=== PATIENT | male | born 1965 | race Caucasian/White ===

== ENCOUNTER 2017-01-03 12:01 | Emergency (ER) | payer OTHER ==
[~2017-01-03] VITALS: Ht 182.9 cm; Wt 161.3 kg
[~2017-01-03 12:01] MED LIST: IBUP-1428 PO; OMEG10007 PO; SERT25TA PO; ZCR10 PO
[2017-01-03 12:02] VITALS: TEMP 37.3; Ht 182.9 cm; Wt 161.3 kg
[2017-01-03] MEDS ORDERED: SERT50TA PO (12:15)
--- NOTE | 2017-01-03 13:50 | EMERGENCY ROOM VISIT NOTE ---
ED Visit Note First contact with patient: 13:02 CHIEF COMPLAINT: Low back pain HISTORY OF PRESENT ILLNESS: This 51-year-old male patient presents to the emergency department ambulatory complaining of pain in the low back which began today at work when he tripped over an ambulance litter and caught himself before he fell to the ground but he twisted his back. He had an injury to his back last year for which he was off work several months. He complains of pain in the low back. He rates his discomfort 6/10. The pain was gradual in onset, is now constant and worse with movement. The patient has taken nothing for relief of the pain. The patient denies any bowel or bladder difficulties. There has been no leg numbness or weakness, and no change in sensation. No nausea or vomiting or abdominal pain. No chest pain or shortness of breath. The patient has had prior back injuries. REVIEW OF SYSTEMS: No dysuria or increased urinary frequency. A 6 system review of systems was completed and pertinent positives and negatives are in the HPI. ALLERGIES: No known drug allergies MEDICATIONS: Zoloft, simvastatin PMH: Hyperlipidemia SOCIAL HISTORY: The patient is employed PHYSICAL EXAM: VITALS: Vitals are noted on the nurse's note and reviewed by myself. No abnormalities noted. GENERAL: As a 51-year-old male, in no acute distress, nondiaphoretic, well- developed well-nourished. SKIN: The skin was without rashes, erythema, edema, or bruising. Capillary refill less than 2 seconds. NECK: Supple without nuchal rigidity. No cervical spine tenderness. No paraspinous muscle tenderness. HEART: Regular rate and rhythm without murmurs gallops or rubs. LUNGS: Clear to auscultation bilaterally without wheezes, rales or rhonchi. ABDOMEN: Positive bowel sounds x 4. Normal tympanic percussion. Soft, nontender, without masses or organomegaly. Taylor sign negative. MUSCULOSKELETAL: No muscle atrophy, erythema, or edema noted of the back. There is mild tenderness over the lumbar spinous processes. There is minimal tenderness over the paraspinous muscles bilaterally. There is no tenderness over the thoracic spine sore paraspinous muscles. There are no muscle spasms present. The patient is slow to move around with maximum tenderness with twisting and extension. Negative straight leg raise test. NEURO: Patient was alert and oriented to person place and time. Normal sensation to light and sharp touch. Deep tendon reflexes 2+ in the lower extremities. Dorsalis pedis pulse 2+ bilaterally. Strength is 5/5 in the lower extremities bilaterally. EMERGENCY DEPARTMENT COURSE: The patient was seen and examined. Previous visits were reviewed. The patient twisted his back at work. He seems to have lumbar strain. He does not have any neurologic deficit on exam or by history. I do not suspect cauda equina, cord compression or infectious process. An x- ray was obtained and did not reveal any obvious abnormality. The patient already takes anti-inflammatories for his knee. He will also be given a prescription for Skelaxin. He should contact occupational medicine for a follow -up appointment for further evaluation, management and return to duty. He should return with any worsening symptoms. DIFFERENTIAL DIAGNOSIS: Lumbar strain, degenerative disc disease, spondylolisthesis, herniated disc, spinal stenosis, osteoporosis, fracture, cauda equina syndrome, neoplasm, infection, inflammatory arthritis, among others. DIAGNOSIS: Lumbar strain LUMBAR SPINE 5 VIEWS CLINICAL HISTORY: Low back pain. Recent fall. FINDINGS: 5 views of the lumbar spine are compared to study dated 03/16/2016. The skeletal structures are well mineralized. There is no radiographic evidence of fracture or malalignment. Vertebral body height and alignment are maintained. The transverse and spinous processes are intact. There is no evidence of spondylolysis. Small anterior osteophytes are seen throughout. Mild disc space narrowing is seen at L5-S1. The remaining intervertebral disc spaces are well-maintained. The visualized bony pelvis appears intact. There is a nonobstructed abdominal bowel gas pattern. IMPRESSION: No acute bony abnormality is seen involving the lumbosacral spine. Current/Historical Medications Scheduled Metaxalone (Skelaxin), 800 MG PO QID Sertraline (Zoloft), 50 MG PO HS Simvastatin (Simvastatin), 30 MG PO HS Allergies Coded Allergies: No Known Allergies (Unverified , 03/16/16) Vital Signs Date Time Temp Pulse Resp B/P (MAP) Pulse Ox O2 Delivery O2 Flow Rate FiO2 01/03/17 15:11 78 20 158/98 96 01/03/17 12:02 37.3 88 16 152/100 94 Room Air Departure Information Impression Primary Impression: Back pain Additional Impression: Work related injury Dispostion Home / Self-Care Condition GOOD Prescriptions Metaxalone (Skelaxin) 800 Mg Tab 800 MG PO QID for 5 Days, #20 TAB Prov: Kalee Echols PA-C 01/03/17 Referrals Emilie Leal D.O. (PCP) Jasmyn Rosales Forms HOME CARE DOCUMENTATION FORM, IMPORTANT VISIT INFORMATION, Work Instructions Additional Instructions: Off work until cleared by occupational medicine Patient Instructions Back Pain - [facility], ED Low Back Pain Injury, My [facility] Additional Instructions Continue the anti-inflammatories Try the Skelaxin every 6 hours as needed for muscle spasm. It may make you sleepy; do not drive while taking it Contact occupational medicine to schedule a follow-up appointment for further evaluation, management and released to full duty Return sooner with any worsening symptoms, numbness, tingling, weakness in the legs, loss of bowel or bladder control, fever or generalized worsening symptoms. Problem Qualifiers Primary Impression: Back pain Back pain location: low back pain Chronicity: acute Sciatica presence: without sciatica
--- NOTE | 2017-01-03 14:40 | DIAGNOSTIC IMAGING REPORT ---
LUMBAR SPINE 5 VIEWS CLINICAL HISTORY: Low back pain. Recent fall. FINDINGS: 5 views of the lumbar spine are compared to study dated 03/16/2016. The skeletal structures are well mineralized. There is no radiographic evidence of fracture or malalignment. Vertebral body height and alignment are maintained. The transverse and spinous processes are intact. There is no evidence of spondylolysis. Small anterior osteophytes are seen throughout. Mild disc space narrowing is seen at L5-S1. The remaining intervertebral disc spaces are well-maintained. The visualized bony pelvis appears intact. There is a nonobstructed abdominal bowel gas pattern. IMPRESSION: No acute bony abnormality is seen involving the lumbosacral spine. Electronically signed by: Que Ceballos M.D. 01/03/2017 2:39 PM Dictated Date/Time: 01/03/2017 2:38 PM
[2017-01-03] MEDS ORDERED: META1TAB22 PO (14:57)
[2017-01-03 15:11] VITALS: BP 158/98; PULSE 78; O2SAT 96
== END 2017-01-03 15:14 | disposition home or self-care (01) ==
LOC: C.EDB 12:02 → C.EDD 15:14
DX: S39.012A Strain of muscle, fascia and tendon of lower back, initial encounter (principal); W22.8XXA Striking against or struck by other objects, initial encounter; X50.0XXA Overexertion from strenuous movement or load, initial encounter; Y99.0 Civilian activity done for income or pay; Y92.89 Other specified places as the place of occurrence of the external cause; E78.5 Hyperlipidemia, unspecified; Z79.899 Other long term (current) drug therapy

== ENCOUNTER 2017-05-23 11:29 | Emergency (ER) | payer OTHER ==
[~2017-05-23] VITALS: Ht 182.9 cm; Wt 159.5 kg
[~2017-05-23 11:29] MED LIST changes: -IBUP-1428 PO; -OMEG10007 PO; -SERT25TA PO; +SERT50TA PO
[2017-05-23 11:43] VITALS: TEMP 36.8; Ht 182.9 cm; Wt 159.5 kg
[2017-05-23] MEDS ORDERED: OMEG10007 PO (12:00)
--- NOTE | 2017-05-23 12:48 | DIAGNOSTIC IMAGING REPORT ---
THORACIC SPINE 3 VIEWS ROUTINE CLINICAL HISTORY: Back pain status post trauma COMPARISON STUDY: No previous studies for comparison. FINDINGS: The paraspinal line is not significantly displaced. There are mild multilevel degenerative changes. No acute fractures or traumatic subluxations are visualized. IMPRESSION: Degenerative change. No acute fractures are visualized on conventional radiographic imaging Electronically signed by: Chaim Radford M.D. 05/23/2017 12:46 PM Dictated Date/Time: 05/23/2017 12:46 PM
--- NOTE | 2017-05-23 12:51 | DIAGNOSTIC IMAGING REPORT ---
L KNEE 3 VIEWS HISTORY: 51 years-old Male same; previous surgery, L acute left knee pain status post fall COMPARISON: None available TECHNIQUE: 3 views of the left knee FINDINGS: Mild medial and lateral with moderate patellofemoral compartment osteoarthritis. Mild spurring of the tibial tuberosity. No acute fracture or dislocation. Small moderate joint effusion. Mild soft tissue swelling, most pronounced medially. IMPRESSION: 1. Small joint effusion with mild medial soft tissue swelling. No fracture. 2. Tricompartmental osteoarthritis, most pronounced within the patellofemoral joint where there is moderate disease. The above report was generated using voice recognition software. It may contain grammatical, syntax or spelling errors. Electronically signed by: Matt Kessler M.D. 05/23/2017 12:49 PM Dictated Date/Time: 05/23/2017 12:48 PM
--- NOTE | 2017-05-23 12:53 | DIAGNOSTIC IMAGING REPORT ---
PELVIS 1 OR 2 VIEW ROUTINE CLINICAL HISTORY: same; L hip and SI joint pain trauma. Pain. COMPARISON: None. DISCUSSION: The bones and joint spaces appear intact. There is no evidence of fracture, dislocation or bony disease. There is no evidence for soft tissue swelling. IMPRESSION: Negative study. The above report was generated using voice recognition software. It may contain grammatical, syntax or spelling errors. Electronically signed by: Esau Ledesma M.D. 05/23/2017 12:51 PM Dictated Date/Time: 05/23/2017 12:49 PM
[2017-05-23 13:31] VITALS: BP 168/96; PULSE 82; O2SAT 96
--- NOTE | 2017-05-23 19:03 | EMERGENCY ROOM VISIT NOTE ---
ED Visit Note First contact with patient: 11:50 Chief Complaint: I fell at work approximately 2 hours ago and hurt my back, left hip and left knee. History of Present Illness: Mr. Lira is a 51-year-old white male who ambulates into the ED complaining of thoracic back pain, left knee pain, left hip pain and sacroiliac joint pain. Historically patient reports he has had previous surgery on his left knee to repair ligamentous structures including the ACL many years ago. 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 This occurred approximately 2 hours before he arrived in the emergency department. He reports before the fall he was not experiencing any lightheaded and dizziness, at the time of the fall he does not remember striking his head or having a loss of consciousness and since the fall he denies any signs of head injury; he does report he has a history of chronic headache which she had one this morning and continues to have but it has not worsened in intensity; he denies any abnormal neurological symptoms or nausea and vomiting related to his fall. Currently he is complaining of pain over the lateral aspect of the left knee. He describes this as a sharp discomfort. He rates his overall discomfort 7/10. His pain is nonradiating. His pain worsens with ambulation and palpation. He has not identified any alleviating factors related to the pain. He has not taken any medication for pain prior to arrival at the hospital. Currently he is also complaining of pain over the area of the left greater trochanter. He describes this as a stabbing pain. He rates his overall discomfort 7/10. The pain is nonradiating. The pain worsens with palpation and ambulation. Additionally he complains of midthoracic back pain in the area of T8 through T10. He describes this as an achy-like sensation. He rates his discomfort 7/ 10. His pain is nonradiating. His pain worsens with palpation and ambulation. Additionally he complains of pain in the area of the sacroiliac joint on the left. This is similar to his other pains. His pain worsens with palpation and ambulation. Currently he denies thoracic and lumbar back pain, nominal pain, nausea/vomiting , extremity weakness/numbness/tingling, genital paresthesias, bowel and bladder dysfunction, leg weakness/numbness/tingling. Review of Systems: As noted above in history of present illness. All body systems were reviewed and found to be negative as noted above. Past Medical History: Status post sleep apnea, bilateral myringotomy, hearing loss and status post arthroscopic left knee surgery. Current Medications: Simvastatin, Zoloft, omega-3 fish oil. Allergies to Medications: Patient denies. Social History: Patient is currently employed; he feels safe in his home environment; he denies tobacco and alcohol use. Physical Examination: Vital Signs: Date Time Temp Pulse Resp B/P (MAP) Pulse Ox O2 Delivery O2 Flow Rate FiO2 05/23/17 13:31 82 18 168/96 96 05/23/17 11:43 36.8 84 20 150/82 95 Room Air GENERAL: 51-year-old male in mild distress due to pain, nontoxic-appearing, afebrile and hemodynamically stable. NEUROLOGICAL: Awake, alert and oriented to person, place and time. Answering questions appropriately and following commands. Normal gait. Good hand eye coordination. Cranial nerves II through XII grossly intact. Short-term and long-term recall. SKIN: Warm, dry and pink. No soft tissue trauma noted. HEENT: Atraumatic and normocephalic. Skull: No bony deformity, tenderness, crepitus or ecchymosis. No raccoons eyes or blackburn signs. No drainage in the ears of the nostril; no hemotympanum. Face: No bony tenderness, swelling or ecchymosis. PERRLA. EOMI without nystagmus. No malocclusion. No intraoral trauma. Airways patent. Speech is clear and normal. Trachea midline. No jugular venous distention. BACK: No tenderness over the bony cervical and lumbar spine. Full range of motion of the cervical spine. Moderate tenderness in the T7 through T12 area. No bony deformity, step-offs, swelling or ecchymosis. No CVA tenderness. Mild tenderness over the right and left sacroiliac joints without bony deformity, bony crepitus, swelling or ecchymosis. THORAX: Lungs sounds are clear to auscultation and equal bilaterally with symmetrical chest wall. No crepitus, tenderness, subcutaneous air or deformities noted. HEART: Regular rate and rhythm. No gallops, rubs or murmurs are appreciated. ABDOMEN: Soft and nontender. Positive bowel sounds in all quadrants. No guarding, rigidity or organomegaly. EXTREMITIES: Moves all extremities well on command and with purpose. All distal neurovascular statuses are intact and equal bilaterally. LEFT LOWER EXTREMITY: No gross bony deformity. No shortening or malrotation. Mild tenderness over the greater trochanter without bony deformity, bony crepitus, swelling or ecchymosis. Full range of motion of the left hip against resistance. Moderate tenderness over the left lateral knee just superior to the joint line. No joint effusion. Negative bounce test. Negative ballottement test. No laxity of the collateral cruciate ligaments. Decreased range of motion in flexion due to pain. Throughout the lower leg skin was warm and pink and capillary refill is brisk. He was able to distinguish light sensations to all dermatomes. ED Course: Patient is assessed as noted above. Patient's medication list was reviewed. Patient was offered pain medication and refused. Left Knee X-Rays: Read by myself and the radiologist and shows small joint effusion with mild medial soft tissue swelling but no fracture. Moderate osteoarthritic changes to the knee was noted. Pelvis X-Rays: Read by myself and the radiologist showing normal. Bones and joint spaces. No evidence of fracture, dislocation or bony disease and no evidence of soft tissue swelling. Thoracic Spine X-Rays: My read by myself and the radiologist showing multiple levels of degenerative changes but no acute fractures or subluxations were noted. Patient was offered crutches, cane and/or walker and refused. Additionally I offered the patient home medications and he reports he has previous medications from a past surgery that he has at home if he would need anything for severe pain. Patient was signed off with 2 days of work. Patient discharged home in stable condition; prior to departure he was reassessed and subjectively reported he was feeling the same. Clinical Impression: Fall. Left knee pain. Left hip pain. Sacroiliac joint pain. Work-related injury. Disposition: Patient discharged home in stable condition; prior to departure he was reassessed and subjectively reported he was feeling the same. Plan: Patient was encouraged to take his home pain medication as needed. Rest and ice were also discussed with the patient. Patient was encouraged to follow-up with Workmen's Compensation in 2 days for recheck and return to work instruction. Patient was encouraged to return the ED for worsening/uncontrolled pain, leg weakness/numbness/tingling or any new/concerning symptoms.
== END 2017-05-23 13:32 | disposition home or self-care (01) ==
LOC: C.EDB 11:31 → C.EDD 13:32
DX: M25.562 Pain in left knee (principal); M25.552 Pain in left hip; M53.3 Sacrococcygeal disorders, not elsewhere classified; W00.0XXA Fall on same level due to ice and snow, initial encounter; Y99.0 Civilian activity done for income or pay; Y92.149 Unspecified place in prison as the place of occurrence of the external cause; G47.30 Sleep apnea, unspecified; Z79.899 Other long term (current) drug therapy